=== PATIENT | male | born 1970 | race Caucasian/White ===

== ENCOUNTER → 2019-10-27 | Outpatient (CLI) | payer OTHER ==
[~2019-10-27] MED LIST: ACET325T21 PO; IBUP1TAB12 PO; IBUP200C9 PO; acetaminophen pm
--- NOTE | 2019-10-28 00:18 | PAIN ---
DATE OF SERVICE: 10/27/2019 INITIAL CONSULTATION FOR PAIN CLINIC CHIEF COMPLAINT: Low back and right lower extremity pain. HISTORY OF PRESENT ILLNESS: This is a 49-year-old male who presents with history of pain, of injury while on the job, without pain prior to the injury by his report. 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 The patient reports it is significant in the low back to the point where he was having difficulty even getting dressed by himself, radiating to the right lower extremity in the posterolateral aspect and anterior thigh, posterior thigh as well to the level of the knee and sometimes into the lower leg, but mostly on the anterior medial thigh and medial lower leg. The patient reports a burning pain as a cramping, tingling with numbness in the right lower extremity, stabbing, sharp, becoming more constant with time. The patient has had physical therapy since the injury until August without significant reduction in pain and some of the exercise, which is difficult for him to perform. The patient reports he is doing exercise on his own, but is just mainly stretching because he is unable to do anything else. This is not helping as well. The patient tried muscle relaxers, hydrocodone, Tylenol, Advil, each of these helped to a moderate extent, but only very minor. The patient did have a tapered dose steroid when he first had an injury, which did decrease the pain for the first few days, but then the pain came back fairly quickly. The patient had the MRI scan of the lumbar spine showing degenerative changes at L4-L5 with moderately severe posterior facet degenerative change and right L4-L5 greater than left, minimal central bulging of the disk annulus causing minimal foraminal tapering without impingement of the canal, severe posterior facet degenerative change of the right side at L5-S1 with [id number] foraminal tapering right greater than left without impingement on the canal, right paracentral protrusion at T11-T12 approximately 6-7 mm as well. The patient rates his disability rating from 0-10, 10 being the worst, is an 8 with family home responsibilities, recreation, 7-8 with social activity, 8 with occupation, 7 with sexual behavior, 6 with self-care and 6 with life support activities. PAST MEDICAL HISTORY: Significant for shortness of breath, kidney stones, cigarette smoking about half pack a day for 30 years. PREVIOUS SURGERY: Include lithotripsy, cystoscopy, appendectomy and right elbow surgery in the past. CURRENT MEDICATIONS: Include acetaminophen and ibuprofen. ALLERGIES: The patient has no known drug allergies. FAMILY HISTORY: Significant for diabetes in the patient's mother, hypertension in the patient's father. SOCIAL HISTORY: The patient drinks about 6-pack of beer every month, smokes about half a pack of cigarettes per day, has for many years, approximately 30 years. Does not use any illegal, illicit or recreational drugs. He is , lives with his spouse and his spouse's father and lives locally in [place], [place]. REVIEW OF SYSTEMS: The patient's review of systems is positive for those items mentioned in history of present illness. All systems reviewed and otherwise negative. It is complete, full and well documented on the patient's chart. PHYSICAL EXAMINATION: VITAL SIGNS: The patient's blood pressure 143/94, pulse 94, respirations 18, temperature 98.1 degrees Fahrenheit, height is 5 feet 8 inches, weight is 307 pounds. GENERAL: The patient is awake, alert, oriented, appropriate, very pleasant demeanor. HEENT: Head shows normocephalic, atraumatic. Extraocular movements are intact and symmetrical. Oral cavity: Mucous membranes moist and pink. Dentition is intact. NECK: Shows anterior throat supple without palpable lymphadenopathy noted. Swallow reflex is symmetrical. CHEST: Shows normal on inspection. Breath sounds clear to auscultation bilaterally. HEART: Shows S1, S2 clear. No murmurs auscultated. ABDOMEN: Soft, nontender, nondistended. No palpable organomegaly is noted. There is no rebound or guarding demonstrated. BACK: Shows a midline spine, normal-appearing cervical lordotic curvature, slight exaggerated thoracic kyphotic curvature, some minor flattening of lumbar lordotic curvature. Lumbar paraspinous muscle shows symmetrical on inspection, on palpation shows some moderate tenderness diffusely throughout the upper, middle and lower distribution of paraspinous muscles bilaterally. No tenderness over the spinous processes, sacrum or sacroiliac regions. The patient shows no specific trigger points or radiation of pain. It shows good rotational motion of the lumbar spine, but with significant tenderness to the right as well as to the left as well as with extension and with forward flexion in all directions and all planes, significant pain in the low back, slightly more on the right side. EXTREMITIES: The patient's lower extremities show deep tendon reflexes at 2+ in the patellar, 1+ tendo-calcaneus tendons. Motor exam is strong with approximately 4 on a scale of 5 right dorsiflexion, extension, quadriceps and hamstring and 5/5 on the left, mostly secondary to pain on the right side. Peripheral pulses are 1+ posterior tibia. No peripheral edema is noted. The patient's straight leg raise noted to be positive on the right side with pain into the lateral and anterior thigh with about 40-45 degrees leg raise, decreased with knee flexion, left side is negative. Gaenslen's and Umberto's maneuvers are negative bilaterally. The patient is able to stand, difficulty trying to stand on his toes, he loses balance very quickly, is walking with a significant antalgic gait favoring the right lower extremity, again not using any assistive devices to ambulate, but walking with significant favoring of the right lower extremity. SKIN: Shows warm and dry, good turgor. No edema. No sores, rashes or bruising throughout. IMPRESSION: 1. This is a 49-year-old male with a history of injury at work 07/03/2019 with subsequent low back pain, right lower extremity pain with radicular qualities. 2. MRI scan of lumbar spine as noted. 3. Cigarette smoking. PLAN: Options were discussed with the patient including conservative medical managements, continued physical therapies, interventional techniques and would like to pursue interventional techniques. We discussed a lumbar epidural steroid injection using description as well as anatomical models to describe the procedure. The patient will wait for preauthorization from his insurance provider and would like to return after preauthorization for lumbar epidural steroid injection at that time. In the meantime, we will continue with stretching and strengthening exercises at home and medication therapy as scheduled. Once this is approved, we will have the patient return for a L4-L5 lumbar epidural steroid injection. CHARLI CHUN MD DR: Lolis JOB#: [id number] / [id number]
== END | disposition home or self-care (01) ==
LOC: PNCL 09:48
PROVIDERS: ATTEND Anesthesiology
DX: M54.5 Low back pain (principal); M79.604 Pain in right leg; F17.210 Nicotine dependence, cigarettes, uncomplicated; Z83.3 Family history of diabetes mellitus; Z82.49 Family history of ischemic heart disease and other diseases of the circulatory system; Z87.442 Personal history of urinary calculi; Z90.89 Acquired absence of other organs; Z98.890 Other specified postprocedural states; Z79.899 Other long term (current) drug therapy
CPT/HCPCS: G0463

== ENCOUNTER → 2019-11-10 | Outpatient (CLI) | payer OTHER ==
[~2019-11-10] MED LIST changes: +IOHEXOL 180 MG/ML 10 ML VIAL. ONE; +methylPREDNISolone ACETATE 40 MG/ML VIAL. ONE; +methylPREDNISolone ACETATE 80 MG/ML VIAL. ONE
--- NOTE | 2019-11-10 09:58 | PAIN ---
DATE OF SERVICE: 11/10/2019 PROGRESS NOTE FOR PAIN CLINIC DIAGNOSES: Lumbar radiculopathy with lumbar degenerative disk disease and lumbar spondylosis. HISTORY OF PRESENT ILLNESS: The patient is a 49-year-old male who returns for followup status post initial evaluation and preauthorization for lumbar epidural steroid injection. The patient eventually had achieved that and would like to proceed today, still significant pain, getting worse now, over the time he has waited since his last visit, in the low back, bilateral lower extremities, posterior gluteus, posterolateral thighs, lateral anterior thighs, worse on the right than the left, but present bilaterally radiating to the anterior medial thighs and medial lower legs. The patient reports it is starting to increase in the mid upper back as well on the right side with some significant burning, tingling, and tight musculature on the right side. The patient reported aching, sharp shooting, tingling and burning in the legs, stabbing in the back and becoming more severe, worse with walking, standing, changing positions. The patient cannot sit for more than about 5-10 minutes. He will have to stand and change positions. He has been waking from sleep at night frequently about every 4 hours. Also, standing and walking are becoming much more difficult. The patient reports his pain is a 7-8 on a scale of 10 on average in the past week, 8 on its worst, 6 at its least and it is in the 8 today. The patient reports no new motor or sensory deficits, no new bowel or bladder incontinence or other complaints. PHYSICAL EXAMINATION: VITAL SIGNS: The patient's blood pressure 145/103, pulse 114, respirations 18, temperature 98.0 degrees Fahrenheit, height is 5 feet 8 inches, and weight is 303 pounds. GENERAL: The patient is awake, alert, oriented, appropriate, very pleasant demeanor. HEENT: Shows normocephalic, atraumatic. Extraocular movements are intact and symmetrical. Oral Cavity: Mucous membranes moist and pink. The patient has full moustache and cornejo. NECK: Shows anterior throat supple without palpable lymphadenopathy noted. Swallow reflex symmetrical. CHEST: Shows normal on inspection. Breath sounds are clear bilaterally. HEART: Shows S1, S2 clear. ABDOMEN: Obese, soft, nontender, nondistended. BACK: Shows spine grossly in the midline. Slight exaggeration of thoracic kyphosis and minor flattening of lumbar lordotic curvature. Lumbar paraspinous muscle shows symmetrical on inspection. Palpation shows some moderate tenderness throughout the upper, middle, and lower distributions of paraspinous musculature, more on the right than the left. This is true into the low aspect of the thoracic paraspinous musculature on the right only but without specific trigger points or radiation. The patient shows good rotation of motion but very stiff and tender with all rotation, right and left lateral as well as forward flexion and rear extension in the mid and upper lumbar back. EXTREMITIES: Lower extremities show deep tendon reflexes at 2+ in the patellar, 1+ tendo-calcaneus tendons. Motor exam is strong with 4/5 right and 5/5 left dorsiflexion and extension. Peripheral pulses are 1+ posterior tibia. No peripheral edema is noted. Options were discussed with the patient. The patient's old chart was reviewed. His current medication regimen updated. Current review of systems updated today as well. We will proceed with a lumbar epidural steroid injection today with fluoroscopic guidance. Risks were discussed including but not limited to bleeding, infection, possibility of epidural hematoma, subsequent neurological compromise, dural puncture, headaches, spinal cord and/or nerve damage, side effects of steroid medication and poor results regarding pain control. The patient understands and wished to proceed. The patient will return to clinic in approximately 2 weeks for followup. He was counseled as to return appointment, activity level, and side effects to be aware of. DIAGNOSES: Lumbar radiculopathy with lumbar degenerative disk disease and lumbar spondylosis. PROCEDURE: Lumbar epidural steroid injection, translaminar approach L4-5 level using C-arm fluoroscopic guidance under sterile prep and drape using local anesthetic. MEDICATION INJECTED: A total of 120 mg Depo-Medrol plus 10 mL of preservative-free normal saline and 2 mL of contrast. CONDITION AT DISCHARGE: Stable. The patient tolerated the procedure well, had no complications. CHARLI CHUN MD DR: YOSEPH/elmer JOB#: [id number] / [id number]
== END ==
LOC: PNCL 08:52
PROVIDERS: ATTEND Anesthesiology
DX: M51.16 Intervertebral disc disorders with radiculopathy, lumbar region (principal); M47.816 Spondylosis without myelopathy or radiculopathy, lumbar region
CPT/HCPCS: 62323; J1030; J1040; Q9965

== ENCOUNTER → 2019-12-04 | Outpatient (CLI) | payer OTHER ==
--- NOTE | 2019-12-04 09:38 | PAIN ---
DATE OF SERVICE: 12/04/2019 PROGRESS NOTE FOR PAIN CLINIC DIAGNOSES: 1. Lumbar radiculopathy with lumbar degenerative disk disease, lumbar spondylosis. 2. Thoracic radiculopathy with thoracic degenerative disk disease. HISTORY OF PRESENT ILLNESS: The patient is a 49-year-old male who returns for followup status post lumbar epidural steroid injection x 1. The patient reports no significant improvement in the back pain, there is significant pain more in the upper to mid back in the last week or so. The patient reports it is tingling, burning pain, stabbing more on the right side than the left, sharp and shooting, becoming more constant, more severe, difficulty with household activities, even using the bathroom by himself, getting dressed in the morning if the pain difficult today as having to have his spouse help him. The patient reports it awakens him from sleep at least once or twice at night. We have to reposition, try to get back to sleep and this happens at least 4-5 times. The patient reports his pain is an 8 on a scale of 10 at its worst over the past week, 7 on average, 6 at its least and is a 7 today. The patient reports it is becoming more constant, more severe in the low back and mid back as well, but again more on the right side in the mid back, some radiation in the right lower extremity, mostly in the posterior lateral anterior thigh, but some on the left side as well. The patient reports no new motor or sensory deficits, no new bowel or bladder incontinence. PHYSICAL EXAMINATION: VITAL SIGNS: The patient's blood pressure is 134/86, pulse 103, respirations 18, temperature is 98.3 degrees Fahrenheit, weight is 298 pounds. GENERAL: The patient is awake, alert, oriented, appropriate, very pleasant demeanor. HEENT: Head shows normocephalic, atraumatic. Extraocular movements are intact and symmetrical. Oral cavity: Mucous membranes moist and pink. Dentition is intact. NECK: Shows anterior throat supple without palpable lymphadenopathy noted. Swallow reflex symmetrical. CHEST: Shows normal on inspection. Breath sounds are clear bilaterally. HEART: Shows S1, S2 clear. No murmurs auscultated. ABDOMEN: Soft, nontender, nondistended. No palpable organomegaly is noted. There is no rebound or guarding demonstrated. BACK: Shows spine grossly in the midline. Normal appearing thoracic kyphosis and some minor flattening of lumbar lordotic curvature. Lumbar paraspinous muscle shows symmetrical on inspection, on palpation shows some moderate tenderness bilaterally, minimally diffusely in the mid thoracic and low thoracic distribution, more on the right than the left, very firm musculature in the right greater than left with very tender on palpation. This is diffusely tender in the lumbar paraspinous musculature bilaterally in the upper, middle and lower distribution of paraspinous muscles. The patient does show good rotational motion of lumbar spine, both laterally as well as extension and flexion without significant difficulty. EXTREMITIES: Lower extremities show deep tendon reflexes 2+ in the patellar, 1+ tendo-calcaneus tendons. Motor exam is approximately 4 on a scale of 5 on the right with dorsiflexion and extension, 5/5 on the left. Peripheral pulses are 1+ posterior tibia. No peripheral edema is noted bilaterally. Options were discussed with the patient. The patient's old chart was reviewed as his current medication regimen updated. Current review of systems updated today as well. We will proceed with a second in the series of epidural steroid injection at this time. Thoracic we reviewed his MRI scan showing T11-T12 protrusion rightward from midline and the patient is having significant increased pain in the right side. We will target the thoracic distribution with injection today. Risks were discussed including but not limited to bleeding, infection, possibility of epidural hematoma, subsequent neurological compromise, dural puncture, headaches, spinal cord and/or nerve damage, side effects of steroid medication and poor results regarding pain control. The patient understands and wished to proceed. The patient will return to clinic in approximately 2 weeks for followup. He was counseled on return appointment, activity level and side effects to be aware of. DIAGNOSIS: Thoracic radiculopathy with thoracic degenerative disk disease. PROCEDURE: Thoracic epidural steroid injection, translaminar approach T11-T12 level using C-arm fluoroscopic guidance under sterile prep and drape using local anesthetic. MEDICATIONS INJECTED: A total of 120 mg Depo-Medrol plus 10 mL of preservative-free normal saline and 2 mL of contrast. CONDITION AT DISCHARGE: Stable. The patient tolerated procedure well, had no complications. CHARLI CHUN MD DR: YOSEPH/elmer JOB#: [id number] / [id number]
== END | disposition home or self-care (01) ==
LOC: PNCL 08:26
PROVIDERS: ATTEND Anesthesiology
DX: M51.14 Intervertebral disc disorders with radiculopathy, thoracic region (principal); M51.16 Intervertebral disc disorders with radiculopathy, lumbar region; M47.26 Other spondylosis with radiculopathy, lumbar region; Z98.890 Other specified postprocedural states
CPT/HCPCS: 62321; J1030; J1040; Q9965

== ENCOUNTER → 2019-12-21 | Outpatient (CLI) | payer OTHER ==
--- NOTE | 2019-12-21 09:32 | PAIN ---
DATE OF SERVICE: 12/21/2019 PROGRESS NOTE FOR PAIN CLINIC DIAGNOSES: 1. Lumbar radiculopathy with lumbar degenerative disk disease and lumbar spondylosis. 2. Thoracic radiculopathy with thoracic degenerative disk disease. HISTORY OF PRESENT ILLNESS: The patient is a 49-year-old male who returns for followup status post lumbar epidural steroid injection x 1 and thoracic epidural steroid injection on his last visit, which was 12/03. The patient did well, reports almost 100% improvement for few hours after the injection and about 90% for the rest of the day, but the pain returned in the mid to low back and into the mid lower thoracic distribution. The patient reports some pain in the low back as well as into the bilateral thighs and posterior gluteus, but mostly in the mid back itself. The patient reports it is a 9 on a scale of 10 at its worst, 7 on average, 6 at its least and is a 6 today. The patient reports it is sharp, shooting, tingling, burning, stabbing, becoming severe at times, worse with activity, standing, walking, wakes him from sleep about every 5 hours or so. The patient reports no new motor or sensory deficits. Initially, he was doing much better with activity, but again only for a day or so. PHYSICAL EXAMINATION: VITAL SIGNS: The patient's blood pressure 171/95, pulse 95, respirations 18, temperature is 98.1 degrees Fahrenheit, height is 5 feet 8 inches, weight is 302 pounds. GENERAL: The patient is awake, alert, oriented, appropriate, very pleasant demeanor. HEENT: Shows normocephalic, atraumatic. Extraocular movements are intact and symmetrical. Oral cavity: Mucous membranes moist and pink. Dentition is intact. NECK: Shows anterior throat supple without palpable lymphadenopathy noted. Swallow reflex symmetrical. CHEST: Shows normal on inspection. Breath sounds clear to auscultation bilaterally. HEART: Shows S1, S2 clear. No murmurs auscultated. ABDOMEN: Soft, nontender, nondistended. No palpable organomegaly is noted. No rebound or guarding demonstrated. BACK: Shows spine grossly in the midline. Normal appearing thoracic kyphosis, cervical lordotic curvature and lumbar lordotic curvature. The patient's back shows some moderate tenderness in the mid and lower thoracic distribution of the paraspinous muscles, but are symmetrical without evidence of atrophy or hypertrophy. The patient does show good rotational motion both laterally as well as extension and flexion without significant increase in pain. The patient's lower extremities show deep tendon reflexes 2+ in the patellar, 1+ tendo-calcaneus tendons. Motor exam is approximately 4 on a scale of 5 on the right, 5/5 on the left with dorsiflexion, extension, quadriceps and hamstring flexion. Peripheral pulses are 1+ in the posterior tibia. No peripheral edema is noted bilaterally. Options were discussed with the patient. The patient's old chart was reviewed as his current medication regimen updated. Current review of systems updated today as well. We will proceed with a third total and second thoracic epidural steroid injection today with fluoroscopic guidance. Risks were again discussed including, but not limited to bleeding, infection, possibility of epidural hematoma, subsequent neurological compromise, dural puncture, headaches, spinal cord and/or nerve damage, side effects of steroid medication and poor results regarding pain control. The patient understands and wished to proceed. The patient will return to the clinic in approximately 2 weeks for followup. He was counseled on return appointment, activity level and side effects to be aware of. DIAGNOSIS: Thoracic radiculopathy with thoracic degenerative disk disease. PROCEDURE: Thoracic epidural steroid injection, translaminar approach at T11-12 level using C-arm fluoroscopic guidance under sterile prep and drape using local anesthetic. MEDICATION INJECTED: A total of 120 mg Depo-Medrol plus 10 mL of preservative-free normal saline and 2 mL of contrast. CONDITION AT DISCHARGE: Stable. The patient tolerated procedure well, had no complications. The patient was given refill prescription for tramadol as well as 50 mg with instruction, side effects to be aware of and will follow up per workers' compensation recommendation. CHARLI CHUN MD DR: YOSEPH/elmer JOB#: [id number] / [id number]
== END ==
LOC: PNCL 08:14
PROVIDERS: ATTEND Anesthesiology
DX: M51.14 Intervertebral disc disorders with radiculopathy, thoracic region (principal); M51.16 Intervertebral disc disorders with radiculopathy, lumbar region; M47.816 Spondylosis without myelopathy or radiculopathy, lumbar region
CPT/HCPCS: 62321; J1030; J1040; Q9965

== ENCOUNTER → 2020-01-28 | Outpatient (CLI) | payer OTHER ==
[~2020-01-28] MED LIST changes: -IOHEXOL 180 MG/ML 10 ML VIAL. ONE; +TRAM50TA PO; -methylPREDNISolone ACETATE 40 MG/ML VIAL. ONE; -methylPREDNISolone ACETATE 80 MG/ML VIAL. ONE
--- NOTE | 2020-01-28 12:16 | PAIN ---
DATE OF SERVICE: 01/28/2020 PROGRESS NOTE FOR PAIN CLINIC DIAGNOSES: 1. Lumbar radiculopathy with lumbar degenerative disk disease. 2. Thoracic radiculopathy with thoracic degenerative disk disease. HISTORY OF PRESENT ILLNESS: The patient is a 49-year-old male who returns for followup status post thoracic epidural steroid injection x 2 and lumbar epidural steroid injection x 1. The patient reports it felt better for less than a day each injection and he has had with significant pain in the mid upper back, more on the right than the left with radiating pain in the mid back and upper back on the right side. The patient reports it is worse with activity, walking, standing, changing positions, sitting or lying down, wakes him from sleep at least every 2-3 hours at night. The patient reports the pain is a 9 on a scale of 10 at its worst over the past week, 8 on average, 6-7 on its least and is an 8 today. The patient reports it is aching, sharp, shooting, stabbing, tingling, burning, becoming more constant, more severe with activity, especially riding a car, walking, changing positions. The patient reports no motor or sensory deficits, no new bowel or bladder incontinence. PHYSICAL EXAMINATION: VITAL SIGNS: The patient's blood pressure is 151/90, pulse 76, respirations 20, temperature 98.5 degrees Fahrenheit, weight is 304 pounds. GENERAL: The patient is awake, alert, oriented, appropriate, very pleasant demeanor. HEENT: Shows normocephalic, atraumatic. Extraocular movements are intact and symmetrical. Oral cavity: Mucous membranes moist and pink. The patient has full cornejo and moustache. NECK: Shows anterior throat supple without palpable lymphadenopathy noted. Swallow reflex symmetrical. CHEST: Shows normal on inspection. Breath sounds are coarse, but clear bilaterally. No rales, rhonchi or wheezes auscultated. HEART: Shows S1, S2 clear. No murmurs auscultated. ABDOMEN: Obese, soft, nontender, nondistended. BACK: Shows spine grossly in the midline, normal-appearing cervical lordotic curvature, some minor increase in thoracic kyphosis and some flattening of lumbar lordotic curvature. Thoracic paraspinous muscle shows symmetrical on inspection, with palpation shows some moderate tenderness diffusely in the mid thoracic distribution bilaterally, more on the right than the left, but without atrophy or hypertrophy without trigger points or asymmetry, but also moderately tender in the low thoracic distribution in the upper and middle right side of the lumbar paraspinous muscles, but again symmetrical without evidence of atrophy, hypertrophy, no trigger points. The patient has good rotational motion both the thoracic spine, lumbar spine with moderate pain reported with right and left lateral rotation and motion as well as extension and forward flexion actually more pain with forward flexion in the thoracic spine then the lumbar. EXTREMITIES: The patient's lower extremities show deep tendon reflexes are 2+ in the patellar, 1+ tendo-calcaneus tendons. Motor exam is approximately 4 on a scale of 5 on the right and 5/5 on the left, but intact. Peripheral pulses are 1+. No peripheral edema is noted bilaterally. Options were discussed with the patient. The patient's old chart was reviewed as his current medication regimen updated. Current review of systems updated today as well. We will hold on further injections at this time as he is waiting for preauthorization with his worker's compensation insurance. We are waiting on preauthorization code from them, the patient would like to wait on this is obtained. He will again follow up with his spinal surgeon regarding progress thus far after 2 injections. We discussed the possibility of a third injection, although the chances of it being significantly pain relieving are somewhat low as the first 2 have not been significantly improving the pain. The patient understands this and would like to proceed. We will wait for preauthorization with his workers' compensation insurance and plan on third thoracic epidural steroid injection unless the patient would rather proceed with his spinal surgeon. CHARLI CHUN MD DR: YOSEPH/elmer JOB#: [id number] / [id number]
== END ==
LOC: PNCL 10:34
PROVIDERS: ATTEND Anesthesiology
DX: M51.15 Intervertebral disc disorders with radiculopathy, thoracolumbar region (principal)
CPT/HCPCS: G0463

== ENCOUNTER → 2020-02-11 | Outpatient (CLI) | payer OTHER ==
[~2020-02-11] MED LIST changes: +IOHEXOL 180 MG/ML 10 ML VIAL. ONE; +methylPREDNISolone ACETATE 40 MG/ML VIAL. ONE; +methylPREDNISolone ACETATE 80 MG/ML VIAL. ONE
--- NOTE | 2020-02-11 11:31 | PAIN ---
DATE OF SERVICE: 02/11/2020 PROGRESS NOTE FOR PAIN CLINIC DIAGNOSES: 1. Lumbar radiculopathy with lumbar degenerative disk disease and lumbar spondylosis. 2. Thoracic radiculopathy with thoracic degenerative disk disease. HISTORY OF PRESENT ILLNESS: The patient is a 49-year-old male who returns for followup status post thoracic epidural steroid injection x 2. The patient had done fairly well, but still significant pain returning after the last injection. The patient reports he has had one lumbar epidural steroid injection also. The patient reports it felt better for about a day or two. The pain radiating in the mid back, upper back on the right side, worse with activity with standing and walking, changing positions, sitting or standing from a seated position and vice versa. The patient reports it is an 8 on a scale of 10 at its worst over the past week, 7 on average, 6 at its least and is 7 today. The patient reports it is aching, sharp, shooting, tingling, burning, stabbing, constant, severe, unbearable at times in the mid back and again on the right side. The patient reports some tingling and burning in the right leg, but the back is worse. The patient reports no new motor or sensory deficits. The patient reports no bowel or bladder incontinence, but does awaken him from sleep at least every 2 hours. PHYSICAL EXAMINATION: VITAL SIGNS: The patient's blood pressure 141/94, pulse 80, respirations 18, temperature 98.2 degrees Fahrenheit, weight is 307 pounds. GENERAL: The patient is awake, alert, oriented, appropriate, very pleasant demeanor. HEENT: Head shows normocephalic, atraumatic. Extraocular movements are intact and symmetrical. Oral cavity: Mucous membranes moist and pink. The patient has full moustache and cornejo. NECK: Shows anterior throat supple without palpable lymphadenopathy noted. Swallow reflex symmetrical. CHEST: Shows normal on inspection. Breath sounds clear. No rales, rhonchi or wheezes auscultated. HEART: Shows S1, S2 clear. ABDOMEN: Obese, soft, nontender, nondistended. BACK: Shows spine grossly in the midline. Normal appearing thoracic kyphosis and minor flattening of lumbar lordotic curvature. Lumbar paraspinous muscle shows symmetrical on inspection as his thoracic paraspinous muscles without significant atrophy or hypertrophy, but with moderate asymmetry, without trigger point injections musculature with palpation. The patient has good rotational motion of both thoracic and lumbar spines. EXTREMITIES: The patient's lower extremities show deep tendon reflexes 2+ in the patellar, 1+ tendo-calcaneus tendons. Motor exam is approximately 4 on a scale of 5 on the right with dorsiflexion, extension, quadriceps and hamstring flexion and 5/5 left. Peripheral pulses are 1+. No peripheral edema is noted. Options were discussed with the patient. The patient's old chart was reviewed as his current medication regimen updated. Current review of systems updated today as well. We will proceed with a third in the series of thoracic epidural steroid injection at the T11-T12 level with fluoroscopic guidance. Risks were again discussed including, but not limited to bleeding, infection, possibility of epidural hematoma, subsequent neurologic compromise, dural puncture, headaches, spinal cord and/or nerve damage, side effects of steroid medication and poor results regarding pain control. The patient understands and wished to proceed. The patient will return to clinic in approximately 2 weeks for followup. She was counseled on return appointment, activity level and side effects to be aware of. DIAGNOSIS: Thoracic radiculopathy with thoracic degenerative disk disease. PROCEDURE: Thoracic epidural steroid injection, translaminar approach at the T11-T12 level using C-arm fluoroscopic guidance under sterile prep and drape using local anesthetic. MEDICATION INJECTED: A total of 120 mg Depo-Medrol plus 10 mL of preservative-free normal saline and 2 mL of contrast. CONDITION AT DISCHARGE: Stable. The patient tolerated procedure well, had no complications. CHARLI CHUN MD DR: YOSEPH/elmer JOB#: [id number] / [id number]
== END | disposition home or self-care (01) ==
LOC: PNCL 09:41
PROVIDERS: ATTEND Anesthesiology
DX: M51.14 Intervertebral disc disorders with radiculopathy, thoracic region (principal); M51.16 Intervertebral disc disorders with radiculopathy, lumbar region; M47.896 Other spondylosis, lumbar region; Z83.3 Family history of diabetes mellitus; Z79.899 Other long term (current) drug therapy
CPT/HCPCS: 62321; J1030; J1040; Q9965